=== PATIENT | male | born 1960 | race Caucasian/White ===

== ENCOUNTER 2018-09-11 13:11 | Emergency (ER) | payer OTHER ==
[2018-09-11] MEDS ORDERED: Tetan/Diph/Pertus SYR(Tdap)* 0.5 ML SYR(BOOSTRIX) use SYR IM ONE (13:34)
[2018-09-11] MEDS ORDERED: Lidocaine 2% PF * 5 ML VIAL INJ ONE (13:34)
[2018-09-11] MEDS ORDERED: Gelfoam 12-7 ADSORBABL SPONGE* 1 EA SPONGE TOPICAL ONE (13:37)
--- NOTE | 2018-09-11 14:03 | UC ---
Laceration HPI - HPI Summary HPI Summary: 58 yo male presents with laceration to right hand. He tells me that he was working with sheet metal and around 1130 today a piece punctured his right palm. Has been oozing blood since that time and he has been applying pressure, but unable to get it to stop. Unsure date of last tetanus. He does not take any blood thinner medications. - History Of Current Complaint Chief Complaint: UCLaceration Stated Complaint: HAND LAC Time Seen by Provider: 09/11/18 13:35 Hx Obtained From: Patient Laceration Location: Hand Mechanism Of Injury: Sharp Trauma Severity: Mild Pain Intensity: 1 Pain Scale Used: 0-10 Numeric - Allergies/Home Medications Allergies/Adverse Reactions: Allergies Allergy/AdvReac Type Severity Reaction Status Date / Time No Known Allergies Allergy Verified 09/11/18 13:30 Home Medications: Home Medications Metoprolol Succinate [Toprol Xl] 1 tab PO DAILY 09/11/18 [History Confirmed 03/20] amLODIPine TAB* [Norvasc 5 mg TAB*] 1 tab PO DAILY 09/11/18 [History Confirmed 09/11/18] PMH/Surg Hx/FS Hx/Imm Hx Cardiovascular History: Hypertension - Surgical History Surgical History: Yes Surgery Procedure, Year, and Place: shoulder both knees reconstructive right foot ganglion cyst - Family History Known Family History: Positive: Hypertension - Social History Occupation: Employed Full-time Lives: With Family Alcohol Use: Daily Alcohol Amount: beer Substance Use Type: None Smoking Status (MU): Never Smoked Tobacco Review of Systems All Other Systems Reviewed And Are Negative: Yes Constitutional: Positive: Negative Skin: Positive: Other - Puncture wound right hand Respiratory: Positive: Negative Cardiovascular: Positive: Negative Neurovascular: Positive: Negative Neurological: Positive: Negative Psychological: Positive: Negative Physical Exam - Summary Physical Exam Summary: GENERAL: NAD. WDWN. No pain distress. SKIN: RIGHT HAND: Center of palm with 3mm superficial skin flap and puncture wound. Mild active bleeding. Clean wound. No FB or tendon/bone involvement. NECK: Supple. Nontender. No lymphadenopathy. CHEST: No accessory muscle use. Breathing comfortably and in no distress. CV: Pulses intact. Cap refill <2seconds MSK: RIGHT hand: FROM all digits. NEURO: Alert. PSYCH: Age appropriate behavior. Triage Information Reviewed: Yes Vital Signs: Initial Vital Signs Temp 99.3 F 09/11/18 13:27 Pulse 90 09/11/18 13:27 Resp 17 09/11/18 13:27 BP 143/86 09/11/18 13:27 Pulse Ox 100 09/11/18 13:27 Vital Signs Reviewed: Yes Laceration Repair - Laceration Repair 1 Description: Stellate Laceration Size After Repair: Length (cm) - 0.3 Irrigation With Pressure Irrigation Device: Yes Closure Material: Skin Adhesive - gel foam Closure Method: Single Layer Laceration Course/Dx - Course/Dx Course Of Treatment: Wound was irrigated with 250mL NS. tdap updated today. Bleeding was unable to be stopped with direct pressure, therefore a thin 5mm layer of gel foam was applied and bandaged with coban. - Diagnosis Provider Diagnosis: Puncture wound of right hand Discharge - Sign-Out/Discharge Documenting (check all that apply): Patient Departure All imaging exams completed and their final reports reviewed: No Studies - Discharge Plan Condition: Stable Disposition: HOME Patient Education Materials: Laceration (ED) Referrals: No Primary Care Phys,NOPCP [Primary Care Provider] - Additional Instructions: If you develop a fever, shortness of breath, chest pain, new or worsening symptoms - please call your PCP or go to the ED immediately. Your blood pressure was high at todays visit. Please see your primary provider within 4 weeks for recheck and re-evaluation. The gel foam will come off naturally in a few weeks. After today, please keep the area covered with a band-aid - Billing Disposition and Condition Condition: STABLE Disposition: Home
== END 2018-09-11 14:18 | disposition home or self-care (01) ==
LOC: UCEAST 13:11
DX: S61.431A Puncture wound without foreign body of right hand, initial encounter (principal); W26.8XXA Contact with other sharp object(s), not elsewhere classified, initial encounter; Y93.89 Activity, other specified; Y92.9 Unspecified place or not applicable; Y99.8 Other external cause status
CPT/HCPCS: 90715; 96372; 99212; A9270-GY; G0463